=== PATIENT | male | born 1955 | race Caucasian/White ===

== ENCOUNTER 2017-03-21 22:18 | Emergency (ER) | payer OTHER | END 2017-03-22 00:52 | disposition home or self-care (01) | LOC: D.ER 22:18 | DX: G89.18 Other acute postprocedural pain (principal); R22.41 Localized swelling, mass and lump, right lower limb; F43.10 Post-traumatic stress disorder, unspecified ==

== ENCOUNTER → 2018-12-12 09:07 | Outpatient (CLI) | payer MEDICARE, OTHER | END | disposition home or self-care (01) | LOC: D.RAD 12-04 10:30 | DX: R13.10 Dysphagia, unspecified (principal) ==